=== PATIENT | female | born 1965 | race Caucasian/White ===

== ENCOUNTER 2020-09-22 14:34 | Emergency (ER) | payer OTHER ==
[2020-09-22 17:11] LABS: Absolute Lymphocytes (CBC) 1.2 K/uL (0.7-4.9); Basophils % 0.3 % (0-1.3); Hematocrit 43.3 % (36.0-45.0); Lymphocytes % 15.9 % (15.3-44.8); MPV 9.2 fL (7.6-11.3); RBC Red Blood Cell Count 5.16 M/uL (3.86-4.86)
[2020-09-22 17:14] LABS: Potassium 3.7 mmol/L (3.5-5.1)
[2020-09-22 17:20] LABS: Urine Blood NEGATIVE (NEG); Urine Glucose NEGATIVE (NEG); Urine Protein NEGATIVE (NEG); Urine pH 5.5 (5.0-7.0)
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
[2020-09-22] MEDS ORDERED: IBUPROFEN 400 MG TAB ONE (17:37)
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
[2020-09-22 20:09] VITALS: TEMP 99.3
[2020-09-22 20:13] VITALS: BP 141/70; O2SAT 100
== END 2020-09-22 18:54 | disposition home or self-care (01) ==
LOC: ER 14:34
DX: M54.2 Cervicalgia (principal); M54.5 Low back pain; M25.511 Pain in right shoulder; M79.604 Pain in right leg; M25.551 Pain in right hip; M25.552 Pain in left hip; J45.909 Unspecified asthma, uncomplicated; F41.9 Anxiety disorder, unspecified; I10 Essential (primary) hypertension; V49.40XA Driver injured in collision with unspecified motor vehicles in traffic accident, initial encounter
CPT/HCPCS: 85025; 80048; 36415; 81003; 70450; 72125; 71260; 74177; 73620; 73590; 99284; Q9967

== ENCOUNTER 2020-09-25 18:14 | Emergency (ER) | payer OTHER, SELFPAY ==
[2020-09-25] MEDS ORDERED: CYCLOBENZAPRINE 10 MG TAB ONE (20:19)
[2020-09-25] MEDS ORDERED: LIDOCAINE 4% PATCH ONE (20:20)
[2020-09-25] MEDS ORDERED: HYDROCODONE/APAP 10/325 TAB ONE (20:20)
[2020-09-25] MEDS ORDERED: KETOROLAC 30 MG/ML INJ ONE (20:20)
--- NOTE | 2020-09-25 20:23 | RAD REPORT ---
EXAM DESCRIPTION: CT - Head Brain Wo Cont - 09/25/2020 8:16 pm CLINICAL HISTORY: HEADACHE Headache, drowsiness COMPARISON: No comparisons TECHNIQUE: All CT scans are performed using dose optimization technique as appropriate and may inclu de automated exposure control or mA/KV adjustment according to patient size. FINDINGS: No intracranial hemorrhage, hydrocephalus or extra-axial fluid collection.No areas of brai n edema or evidence of midline shift. The paranasal sinuses and mastoids are clear. The calvarium is intact. IMPRESSION: No acute intracranial abnormality.
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
[2020-09-25 22:03] VITALS: BP 120/80; TEMP 98; O2SAT 100
== END 2020-09-25 21:14 | disposition home or self-care (01) ==
LOC: ER 18:14
DX: S16.1XXA Strain of muscle, fascia and tendon at neck level, initial encounter (principal); I10 Essential (primary) hypertension
CPT/HCPCS: 70450; 96372; 99283